=== PATIENT | female | born 1945 | race African-American/Black ===

== ENCOUNTER 2016-08-10 13:29 | Emergency (ER) | payer OTHER ==
[~2016-08-10] VITALS: Ht 160 cm; Wt 84.8 kg
[~2016-08-10 13:29] MED LIST: BENA40TA2 PO; IBUP600T27 PO; METO-158 PO; SIMV-8 PO; SIMV10TA84 PO
[2016-08-10 15:35] VITALS: BP 159/101
[2016-08-10 16:00] LABS: Basophils # (auto) 0 uL; Basophils % (auto) 0.8 % (0.0-2.0); DEFINITIVE VIEW TRANSMISSION; Eosinophils # (auto) 0.1 uL; Eosinophils % (auto) 1.4 % (0.0-7.0); Hematocrit 37.6 % (36.0-46.0); Hemoglobin 12.3 g/dL (12.2-16.2); Lymphocytes # (auto) 1.3 uL; Lymphocytes % (auto) 27.3 % (10.0-50.0); Mean Corpuscular Hemoglobin 26.4 pg (28.0-32.0); Mean Corpuscular Hgb Conc. 32.8 g/dL (32.0-36.0); Mean Corpuscular Volume 80.5 fL (80.0-100.0); Mean Platelet Volume 8.3 fL (7.4-10.4); Monocytes # (auto) 0.4 uL; Neutrophils # (auto) 2.9 uL; Neutrophils % (auto) 62.5 % (37.0-80.0); Platelet Count (auto) 329 10^3/uL (140-450); SUSPECT VIEW TRANSMISSION; White Blood Cell 4.7 10^3/uL (4.4-10.8)
[2016-08-10 16:19] LABS: BUN/Creatinine Ratio 22.1
== END 2016-08-10 18:38 | disposition home or self-care (01) ==
LOC: ER 13:29
DX: N63 Unspecified lump in breast (principal); I10 Essential (primary) hypertension; E78.5 Hyperlipidemia, unspecified; E07.9 Disorder of thyroid, unspecified
CPT/HCPCS: 36415; 76642; 80048; 85025